=== PATIENT | male | born 1950 | race Caucasian/White ===

== ENCOUNTER 2017-12-04 19:12 | Emergency (ER) | payer MEDICARE ==
[2017-12-04 19:32] VITALS: BP 179/100
--- NOTE | 2017-12-04 19:54 | UC ---
Skin Complaint HPI - HPI Summary HPI Summary: 67 y/o male presents to the urgent care c/o a rash in his chest and abdomen since this morning when he woke up. [facility] and [facility] wore [facility] to sleep. He also states he has been recently taking Meloxicam for his Neck for the past week and Trazodone PO for the past month. He has taking Benadryl Po which has helped w/ itchiness. He called his PCP and he advised him to come to Urgent care for Prednisone PO. He is allergic to Ibuprofen PO, blue beries and clams which he doesn't recall taken them lately. Pt denies SOB, difficulty breathing, lip swelling, chest pain, abdominal pain, N/V/D. - History of Current Complaint Chief Complaint: UCAllergicReaction Time Seen by Provider: 12/04/17 19:39 Stated Complaint: ALLERGIC REACTION Hx Obtained From: Patient Onset/Duration: Sudden Onset, Lasting Hours - 12 hrs, Still Present, Worse Since - 3 hrs ago Skin Exposure Onset/Duration: Hours Ago - 12hrs Timing: Constant Onset Severity: Mild Current Severity: Moderate Pain Intensity: 0 Pain Scale Used: 0-10 Numeric Location: Discrete - b/l chest and abdomen Character: Pruritus, Hives, Redness Aggravating Factor(s): Touch Alleviating Factor(s): Antihistamines Associated Signs & Symptoms: Positive: Rash. Negative: Nausea, Vomiting, Difficulty Breathing, Fever, Chills, Throat Tightening, Red Streaks Related History: Recent change in medication, Possible Reaction to: Environmental Exposure - Allergy/Home Medications Allergies/Adverse Reactions: Allergies Allergy/AdvReac Type Severity Reaction Status Date / Time ibuprofen [From Motrin] Allergy Severe SKIN Verified 12/04/17 19:33 TURNED RED clams Allergy Unknown Unknown Verified 12/04/17 19:33 Reaction Details Home Medications: Home Medications diPHENhydraMINE 2% CREAM(NF) [Benadryl 2% CREAM (NF)] PRN 12/04/17 [History] diPHENhydraMINE PO* [Benadryl PO 25 MG TAB*] 50 mg PO PRN 12/04/17 [History] Review of Systems Constitutional: Negative Skin: Rash - B/L chest and abdomen w/ rash Eyes: Negative ENT: Negative Respiratory: Negative Cardiovascular: Negative Gastrointestinal: Negative Genitourinary: Negative Motor: Negative Neurovascular: Negative Musculoskeletal: Negative Neurological: Negative Psychological: Negative Is Patient Immunocompromised?: No All Other Systems Reviewed And Are Negative: Yes PMH/Surg Hx/FS Hx/Imm Hx Previously Healthy: Yes - Pt denies PMHX - Surgical History Surgical History: Yes Surgery Procedure, Year, and Place: FX LEG - Family History Known Family History: Positive: None - Pt denies FMHX - Social History Occupation: Employed Full-time Lives: With Family Alcohol Use: Occasionally Substance Use Type: None Smoking Status (MU): Never Smoked Tobacco Physical Exam - Summary Physical Exam Summary: Vital Signs Reviewed: Yes General: well developed, well nourished male sitting in the examining table w/o any apparent distress. Eyes: Positive: Conjunctiva Clear - PERRLA, EOMI ENT: Positive: Normal ENT inspection, Hearing grossly normal, Pharynx normal, TMs normal Neck: Positive: Supple, Nontender, No Lymphadenopathy Respiratory: Positive: Chest nontender, Lungs clear, Normal breath sounds Cardiovascular: Positive: RRR, No Murmur, Pulses Normal Abdomen Description: Positive: Nontender, No Organomegaly, Soft. Negative: CVA Tenderness (R), CVA Tenderness (L) Bowel Sounds: Positive: Present Musculoskeletal: Positive: Strength Intact, ROM Intact, No Edema Neurological Exam: Normal Psychological Exam: Normal Skin: Positive: rashes - Positive multiple maculopapular eruption in linear pattern and scattered hives on lateral sides of chest and abdomen, non tender to palpation, no drainage observed, however sign of excoriations observed . Triage Information Reviewed: Yes Vital Signs: Initial Vital Signs Temp 98.4 F 12/04/17 19:28 Pulse 110 12/04/17 19:28 Resp 18 12/04/17 19:28 BP 179/100 12/04/17 19:28 Pulse Ox 100 12/04/17 19:28 Course/Dx - Course Course Of Treatment: 67 y/o male presents to the urgent care c/o a rash in his chest and abdomen since this morning when he woke up. Pt reports he bought a T- shirt at [facility] and he wore it to sleep. He also states he has been recently taking Meloxicam for his Neck for the past week and Trazodone PO for the past month. He has taking Benadryl Po which has helped w/ itchiness. He called his PCP and he advised him to come to Urgent care for Prednisone PO. He is allergic to Ibuprofen PO, blue beries and clams which he doesn't recall taken them lately. Pt denies SOB, difficulty breathing, lip swelling, chest pain, abdominal pain, N/V/D. Hx obtained. Pt w/ an erythematous maculopapular eruption in both sides of his chest and abdomen. Probably Contat dermatitis. Pt Given Methylprednisone IM inj by Nurse. Pt tolerated well IM inj and felt better. Pt advised to stop Meloxicam PO and not to wear the new T-shirt tonight. Also advised to continue taking Benadryl PO. Pt Rx Prednisone PO taper dose. Pt advised if rash worsens despite medications and he develops SOB w/ difficulty breathing to immediately go to the ER for further treatment. Pt's BP is elevated today advised to decrease salt in diet, monitor BP and f/u with PCP for further management.However Pt states hei BP usually is elevated when he visits the DR. Pt understood and agreed with plan of care. - Differential Diagnoses - Skin Complaint Differential Diagnoses: Allergic Reaction, Contact Dermatitis, Local Allergic Reaction - Diagnoses Provider Diagnoses: 1-Contact dermatitis. 2- Acute rash. 3- Elevated BP w/o Hx of HTN. Discharge - Sign-Out/Discharge Documenting (check all that apply): Discharge - Discharge Plan Condition: Stable Disposition: HOME Prescriptions: predniSONE TAB* [Deltasone TAB*] 20 mg PO DAILY #11 tab Patient Education Materials: Acute Rash (ED), Low-Sodium Diet (ED) Referrals: [facility] [Outside] - If Needed Additional Instructions: 1-Please Take prednisone PO as directed. first dose given at the clinic tonight. Please Stop taking Meloxican PO and Trazodone PO until rqash resolves. 2-continue taking Benadryl Po to alleviate itchiness and rash 3-If symptoms do not improve or worsen please f/u with your PCP or return to the urgent care in 2 days for further evaluation and treatment. 4- If you develop, SOB, throat swelling or difficulty breathing please go immediately to the Er for further treatment. 5-Your BP is elevated today. please decrease salt in your diet, monitor BP and if it continues to be elevated please f/u with your PCP for further management - Billing Disposition and Condition Condition: STABLE Disposition: HOME
[2017-12-04] MEDS ORDERED: methylPREDNISolone 125 MG* 2 ML VIAL IM ONE (19:57)
== END 2017-12-04 20:35 | disposition home or self-care (01) ==
LOC: UCEAST 19:12
DX: L25.9 Unspecified contact dermatitis, unspecified cause (principal); R21 Rash and other nonspecific skin eruption; R03.0 Elevated blood-pressure reading, without diagnosis of hypertension; Z88.6 Allergy status to analgesic agent
CPT/HCPCS: 96372; 99202; G0463; J2930